=== PATIENT | male | born 1980 | race African-American/Black ===

== ENCOUNTER 2018-02-28 05:45 | Emergency (ER) | payer OTHER ==
[2018-02-28 05:54] VITALS: BP 121/80; PULSE 80; RESP 18; TEMP 98.7
--- NOTE | 2018-02-28 06:26 | XR ---
EXAMINATION TYPE: XR foot complete LT DATE OF EXAM: 02/28/2018 COMPARISON: NONE HISTORY: Foot pain TECHNIQUE: 3 views FINDINGS: Metatarsals appear intact. I see no fracture nor dislocation. Joint spaces appear normal. IMPRESSION: Negative left foot exam.
--- NOTE | 2018-02-28 06:52 | ED ---
Lower Extremity Injury HPI - General Chief Complaint: Extremity Injury, Lower Stated Complaint: Foot Injury-[facility] Time Seen by Provider: 02/28/18 06:08 Source: patient, family Mode of arrival: ambulatory Limitations: no limitations - History of Present Illness Initial Comments: Planing about term heavy object falling on his left foot he is concerned about a fracture no other injuries. No injury to the upper or lower extremities otherwise review of system is absolutely unremarkable - Related Data Previous Rx's Medication Instructions Recorded Ibuprofen [Motrin] 800 mg PO TID PRN #45 tab 02/28/18 Allergies Allergy/AdvReac Type Severity Reaction Status Date / Time No Known Allergies Allergy Verified 02/28/18 05:54 Review of Systems ROS Statement: Those systems with pertinent positive or pertinent negative responses have been documented in the HPI. ROS Other: All systems not noted in ROS Statement are negative. 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 Eye: Pupils are equal, round and reactive to light, extra-ocular movements are intact; there is normal conjunctiva bilaterally. Ears, nose, mouth and throat: There are moist mucous membranes and no oral lesions. Neck: The neck is supple, there is no tenderness or JVD. Cardiovascular: There is a regular rate and rhythm. No murmur, rub or gallop is appreciated. Respiratory: To auscultation bilateral, no wheezing no rhonchi no distress respiratory mauricio noticed Gastrointestinal: Soft, non-distended, non-tender abdomen without masses or organomegaly noted. There is no rebound or guarding present. Bowel sounds are unremarkable. Back: There is no tenderness to palpation in the midline. There is no obvious deformity. Musculoskeletal: Dorsal surface of the left foot is tender to palpate but was able to palpate both arteries pain him a no neurovascular compromise noticed. Neurological: CN II-XII intact, Cranial nerves III through XII are intact. There are no obvious motor or sensory deficits. Coordination appears grossly intact. Speech is normal. Psychiatric: Cooperative, appropriate mood & affect, normal judgment. Limitations: no limitations Course Vital Signs 02/28/18 05:49 Temperature 98.7 F Pulse Rate 80 Respiratory 18 Rate Blood Pressure 121/80 O2 Sat by Pulse 99 Oximetry She was reviewed no obvious fracture noticed Disposition Clinical Impression: Foot contusion Disposition: HOME SELF-CARE Condition: Fair Instructions: Foot Contusion (ED), Foot Sprain (ED) Prescriptions: Ibuprofen [Motrin] 800 mg PO TID PRN #45 tab PRN Reason: Pain Is patient prescribed a controlled substance at d/c from ED?: No Referrals: None,Stated [Primary Care Provider] - 1-2 days
== END 2018-02-28 06:51 | disposition home or self-care (01) ==
LOC: EC 05:45
DX: S90.32XA Contusion of left foot, initial encounter (principal); F17.200 Nicotine dependence, unspecified, uncomplicated; W20.8XXA Other cause of strike by thrown, projected or falling object, initial encounter; Y99.0 Civilian activity done for income or pay
CPT/HCPCS: 99283